=== PATIENT | male | born 1940 | race Caucasian/White ===

== ENCOUNTER 2017-11-15 19:00 | Emergency (ER) | payer MEDICARE ==
[2017-11-15] MEDS ORDERED: Sodium Chloride 0.9% 1000 ML 1,000 ML IV ONE (19:01)
[2017-11-15] MEDS ORDERED: EPINEPHRINE ABBOJECT 1 MG IV ONE (19:01)
--- NOTE | 2017-11-15 19:28 | ERPHSYRPT ---
- History of Present Illness Time Seen by Provider: 11/15/17 19:05 Source: patient, EMS Physician History: Is a 76-year-old white male with history of atherosclerotic coronary artery disease, pacer defibrillator, who arrives via medics with CPR in progress he is intubated by the medics prior to arrival. Patient apparently was noted by his family had approximately 6:15 2 suddenly began to complain of shortness of breath he collapsed. Patient had a pulseless electronic rhythm per medics. He patient was given epinephrine 3 he was given defibrillation. On arrival patient is continuing with pulseless electronic rhythm CPR is a continued patient with bilateral breath sounds with bag ventilation some blood is noted in the ET tube. Patient was given multiple doses of epinephrine he did have a period where he appeared to have ventricular tachycardia on the monitor he was given 2 defibrillation shocks however return to pulseless electrical activity patient's eyes are fixed and dilated. Patient had a slight audible pulse with the Doppler however this was not perfusing him. The family has asked that the patient's CPR be discontinued. Past medical history includes high blood pressure atherosclerotic coronary artery disease. Patient apparently had cataract surgery today Patient uses an inhaler at home Timing/Duration: today (patient apparently went down at around 18:15 today) Severity: severe Modifying Factors: Improves With: nothing Associated Symptoms: other (cardiac and respiratory arrest) - Review of Systems Constitutional: Other (cardiac and respiratory arrest at home) Eyes: No Symptoms Ears, Nose, & Throat: No Symptoms All Other Systems: Unable due to condition (patient intubated cpr in progress) - Past Medical History Cardiac History: Congestive Heart Failure, Coronary Artery Disease, Hypertension - Physical Exam General Appearance: other (obese white maie intubated unresponsive cpr in progress) Eye Exam: other (pupils fixed and dilated) Ears, Nose, Throat Exam: other (et tube in place) Neck Exam: normal inspection, non-tender, supple, full range of motion Respiratory Exam: other (bilateral breath sounds with bag ventilatiuon through et tube) Cardiovascular Exam: other (absent pulse) Gastrointestinal/Abdomen Exam: soft, normal bowel sounds, No tenderness, No mass Back Exam: normal inspection, normal range of motion, No CVA tenderness, No vertebral tenderness Extremity Exam: normal inspection, normal range of motion, pelvis stable Neurologic Exam: alert, oriented x 3, cooperative, normal mood/affect, nml cerebellar function, nml station & gait, sensation nml, No motor deficits Skin Exam: normal color, warm, dry, No rash Lymphatic Exam: No adenopathy SpO2 Interpretation: hypoxic (less than 50% on 100) - Course Nursing assessment & vital signs reviewed: Yes - Progress Progress: unchanged Progress Note: 11/15/17 19:33 Patient had apparently been intubated by medics however the tube became dislodged and patient was reintubated here in the emergency room. Patient had a pulseless electrical activity generated by his pacemaker he had no response to epinephrine and CPR. Patient was intubated here in the emergency room he had bilateral breath sounds through the ET tube.Patient did have a bout of what appeared to be ventricular tachycardia he was treated with defibrillation which reason back to pulseless electrical activity. Patient was noted to have a of faint pulse with a Doppler by the nurses however this was not perfusing and was not palpable with finger. The patient's family requested that we stop CPR efforts he had been down for approximately 1 hour had received multiple doses of epinephrine and continuing CPR him follow him when they leave himses of epinephrine, him code began him 1853. Code called at 192111/15/17 20:24 [employer] was contacted by Tami Morel (warehouse person), He did not feel like she corner needed be involved in this case. A call has been placed for the patient's family doctor Will anticipate discharge release to home of patient's family's choice. 11/15/17 20:41 I discussed the patient's case with his family doctor, Dr. Dowell from [facility]. He is aware of the patient's and is willing to sign the patient's certificate. Will release patient to home of the patient's family's choice. - Departure Time of Disposition: 20:26 Departure Disposition: Clinical Impression: cardiac and respiratory arrest Condition: Critical Care Time: No Referrals: Provider,Unknown [NON-STAFF PHY W/O PRIVILEGES] -
== END 2017-11-15 22:45 | disposition expired ==
LOC: ED 19:00
DX: I46.9 Cardiac arrest, cause unspecified (principal); R09.2 Respiratory arrest
CPT/HCPCS: 31500; 96360; 99291; J0171